=== PATIENT | male | born 1970 | race Caucasian/White ===

== ENCOUNTER 2018-02-15 15:04 | Emergency (ER) | payer MEDICAID ==
[~2018-02-15 15:04] MED LIST: CEPH500C5 PO; CLON-527 PO; CYCL-394 PO; GEMF600T PO; GUAN1TAB PO; HYDR-3686 PO; HYDR-565 PO; LISI-222 PO; QUET-1 PO; RISP2TAB97 PO; TRAM50TA2 PO; TRAZ-91 PO
== END 2018-02-15 17:23 | disposition left against medical advice (07) ==
LOC: ER 15:04
DX: Z00.8 Encounter for other general examination (principal); Z53.21 Procedure and treatment not carried out due to patient leaving prior to being seen by health care provider

== ENCOUNTER 2018-03-24 11:37 | Emergency (ER) | payer MEDICAID ==
[~2018-03-24] VITALS: Ht 180.3 cm; Wt 74.2 kg
[2018-03-24] MEDS ORDERED: lactulose 20gm/30ml cup PO ONE (12:15)
[2018-03-24 12:26] LABS: BASOPHILS # (AUTO) 0.1 X10'3 (0-0.2); BASOPHILS % (AUTO) 1.1 % (0-1); EOSINOPHILS # (AUTO) 0.2 X10'3 (0-0.9); EOSINOPHILS % (AUTO) 2.2 % (0-6); HEMATOCRIT 47.4 % (42.0-52.0); LYMPHOCYTES # (AUTO) 2.2 X10'3 (1.1-4.8); LYMPHOCYTES % (AUTO) 23.8 % (21-51); MEAN CORPUSCULAR HEMOGLOBIN 32.2 PG (27.0-31.0); MEAN CORPUSCULAR HGB CONC 33.7 % (33.0-36.5); MEAN CORPUSCULAR VOLUME 95.7 FL (78-98); MEAN PLATELET VOLUME 8.5 FL (7.4-10.4); MONOCYTES # (AUTO) 0.8 X10'3 (0-0.9); MONOCYTES % (AUTO) 8.7 % (2-12); NEUTROPHILS % (AUTO) 64.2 % (42-75); PLATELET COUNT 280 X10'3 (140-440); RED BLOOD COUNT 4.95 X10'6 (4.70-6.10); RED CELL DISTRIBUTION WIDTH 14.8 % (11.5-14.5); WHITE BLOOD COUNT 9.4 X10'3 (4.5-11.0)
[2018-03-24 12:38] LABS: ALANINE AMINOTRANSFERASE 395 U/L (12-78); ALBUMIN 3.2 G/DL (3.4-5.0); ALBUMIN/GLOBULIN RATIO 0.6 (1.1-1.5); ALKALINE PHOSPHATASE 118 IU/L (46-116); ANION GAP 8 (8-16); ASPARTATE AMINO TRANSFERASE 178 U/L (10-37); BILIRUBIN,TOTAL 0.4 MG/DL (0.1-1.0); BLOOD UREA NITROGEN 13 MG/DL (7-18); BUN/CREATININE RATIO 15.5 (5.4-32.0); CALCIUM 8.8 MG/DL (8.5-10.1); CHLORIDE 102 MMOL/L (99-107); CREATININE 0.84 MG/DL (0.60-1.10); ETHANOL < 0.010 GM/DL (0.0-0.010); SODIUM 138 MMOL/L (135-145); TOTAL CARBON DIOXIDE 27.7 MMOL/L (24-32); TOTAL PROTEIN 8.3 G/DL (6.4-8.2); eGFR > 90 ML/MIN
[2018-03-24 12:40] LABS: GLUCOSE 129 MG/DL (70-104); POTASSIUM 3.6 MMOL/L (3.5-5.1)
[2018-03-24] MEDS ORDERED: lactulose 20gm/30ml cup ONE (13:49)
[2018-03-24 13:59] LABS: URINE AMPHETAMINE SCREEN POSITIVE (Neg); URINE BARBITUATE SCREEN NEGATIVE (Neg); URINE BENZODIAZEPINES SCREEN NEGATIVE (Neg); URINE CANNABINOID SCREEN POSITIVE (Neg); URINE COCAINE SCREEN NEGATIVE (Neg); URINE METHADONE SCREEN NEGATIVE (Neg); URINE OPIATE SCREEN NEGATIVE (Neg); URINE PHENCYCLIDINE SCREEN NEGATIVE (Neg)
[2018-03-24] MEDS ORDERED: NICOTINE POLACRILEX 4 MG LOZENGE BC PRN (19:30)
[2018-03-25] MEDS: lurasidone 20mg tablet PO SCH (08:25)
[2018-03-25] MEDS: nicotine 14mg patch - 24hr TD SCH (08:26)
[2018-03-25] MEDS ORDERED: acetaminophen 325mg tablet PO PRN (17:35)
[2018-03-26] MEDS: nicotine 14mg patch - 24hr TD SCH (08:18)
[2018-03-26] MEDS: lurasidone 20mg tablet PO SCH (08:19)
[2018-03-26] MEDS ORDERED: hydrOXYzine 25 MG tablet PO PRN (08:30)
[2018-03-26] MEDS: HYDROcodone/acetaminophen 10/325mg tab PO PRN ×3 (08:47→21:46)
[2018-03-26 11:28] LABS: CLARITY,URINE CLEAR (Clear); COLOR,URINE YELLOW (Yellow); GLUCOSE, URINE NEGATIVE (Neg); KETONES,URINE NEGATIVE (Neg); LEUKOCYTE ESTERASE ,URINE NEGATIVE (Neg); NITRITES, URINE NEGATIVE (Neg); OCCULT BLOOD,URINE TRACE-INTACT (Neg); PROTEIN,URINE NEGATIVE (Neg)
[2018-03-26 11:29] LABS: UA COLLECTION TYPE CLN CATCH MIDSTREAM
[2018-03-26 11:33] LABS: BACTERIA,URINE FEW /HPF (Neg); MUCUS STRANDS MODERATE /LPF (Neg); RBC,URINE 0-2 /HPF (0-2); SQUAMOUS EPITHELIAL CELL,UR NONE SEEN /LPF (FEW); WBC,URINE 0-4 /HPF (0-4)
[2018-03-27 05:39] VITALS: BP 138/85
[2018-03-27] MEDS: HYDROcodone/acetaminophen 10/325mg tab PO PRN ×2 (05:42→14:11)
[2018-03-27] MEDS: lurasidone 20mg tablet PO SCH (07:41)
[2018-03-27] MEDS: nicotine 14mg patch - 24hr TD SCH (07:42)
== END 2018-03-27 14:42 ==
LOC: ER 11:38
DX: R45.851 Suicidal ideations (principal); E78.00 Pure hypercholesterolemia, unspecified; I10 Essential (primary) hypertension; K21.9 Gastro-esophageal reflux disease without esophagitis; F17.210 Nicotine dependence, cigarettes, uncomplicated; F12.10 Cannabis abuse, uncomplicated; Z98.890 Other specified postprocedural states; Z59.0 Homelessness; Z88.6 Allergy status to analgesic agent; Z79.899 Other long term (current) drug therapy
CPT/HCPCS: 36415; 80053; 80305; 80320; 81001; 84443; 85025; 93005; 99285; A4353

== ENCOUNTER 2018-04-06 03:50 | Emergency (ER) | payer MEDICAID ==
[~2018-04-06] VITALS: Ht 190.5 cm; Wt 73.7 kg
[~2018-04-06 03:50] MED LIST changes: -CEPH500C5 PO; -CLON-527 PO; -CYCL-394 PO; -GEMF600T PO; -GUAN1TAB PO; -HYDR-3686 PO; -HYDR-565 PO; -QUET-1 PO; -RISP2TAB97 PO; -TRAM50TA2 PO; -TRAZ-91 PO
[2018-04-06 03:55] VITALS: BP 129/103
== END 2018-04-06 04:07 | disposition home or self-care (01) ==
LOC: ER 03:50
DX: M25.572 Pain in left ankle and joints of left foot (principal); I10 Essential (primary) hypertension; K21.9 Gastro-esophageal reflux disease without esophagitis; E78.00 Pure hypercholesterolemia, unspecified; Z88.6 Allergy status to analgesic agent; Z59.0 Homelessness; V29.9XXA Motorcycle rider (driver) (passenger) injured in unspecified traffic accident, initial encounter; Y93.55 Activity, bike riding; Y92.89 Other specified places as the place of occurrence of the external cause; Y99.8 Other external cause status
CPT/HCPCS: 99282

== ENCOUNTER 2018-10-09 23:50 | Emergency (ER) | payer MEDICAID ==
[~2018-10-09] VITALS: Ht 193 cm; Wt 89.0 kg
[2018-10-10 00:24] VITALS: BP 128/74
== END 2018-10-10 02:20 | disposition left against medical advice (07) ==
LOC: ER 23:51
DX: T63.391A Toxic effect of venom of other spider, accidental (unintentional), initial encounter (principal); Z53.21 Procedure and treatment not carried out due to patient leaving prior to being seen by health care provider; Y92.9 Unspecified place or not applicable